=== PATIENT | female | born 1955 | race American Indian/Alaskan Native ===

== ENCOUNTER 2019-02-25 12:18 | Emergency (ER) | payer SELFPAY ==
[2019-02-25 13:05] VITALS: BP 167/97
--- NOTE | 2019-02-25 13:08 | Emergency Department Report ---
Chief Complaint: High BP Stated Complaint: HBP Time Seen by Provider: 02/25/19 13:05 - HPI History of Present Illness: This is a 63-year-old female with a history of hypertension who presents to ED for elevated blood pressure stayed in that she has run out of her medication. Patient denies any chest pain, fever, blurred vision or any other symptoms. - ROS Review of Systems: As noted in HPI - Exam Vital Signs: Vital Signs 02/25/19 13:00 Temperature 98.5 F Pulse Rate 114 H Respiratory 20 Rate Blood Pressure 167/97 O2 Sat by Pulse 99 Oximetry Physical Exam: GENERAL: Alert and oriented x3, no apparent distress, Normal Gait, atraumatic. LUNGS: Symetrical with respiration, No wheezing, no rales or crackles, CTAB. HEART: S1, S2 present, regular rate and rhythm SKIN: Warm and dry, No lesions, No ulceration or induration present. MSE screening note: Focused history and physical exam performed. Due to findings the following was ordered: ED Medical Decision Making - Medical Decision Making This 63-year-old female with hypertension presents for medication refill. Discussed the patient at this is not a medical emergency. Referrals given for Dr. hidalgo for patient to follow-up with Discussed the patient told to the clinic upon leaving the ER. Patient on no symptoms in the ED. Patient on the neurological deficit. She understands instructions and states he will follow-up. ED Disposition for MSE Clinical Impression: Uncontrolled hypertension Disposition: MED SCREENING EXAM-LEFT Is pt being admited?: No Does the pt Need Aspirin: No Condition: Stable Instructions: Hypertension (ED) Additional Instructions: Follow up with [facility] for blood pressure management Referrals: [facility] [Outside] - 3-5 Days [facility] [Outside] - 3-5 Days [facility] [Outside] - 3-5 Days Forms: Work/School Release Form(ED) Time of Disposition: 13:07
== END 2019-02-25 13:39 | disposition left against medical advice (07) ==
LOC: ED 12:18
DX: I10 Essential (primary) hypertension (principal)
CPT/HCPCS: 99281